=== PATIENT | male | born 1970 | race Caucasian/White ===

== ENCOUNTER 2021-06-07 02:54 | Day surgery (SDC) | payer BC, SELFPAY ==
[2021-05-22 14:12] VITALS: BMI 34.4
--- NOTE | 2021-06-06 14:08 | PM.HPGS ---
History of Present Illness History of Present Illness Consent: Risks, benefits, and alternatives have been discussed and questions answered. Patient agrees to proceed with procedure. Chief complaint: diarrhea, abnormal weightloss, abdominal pain Narrative: Angelo Abarca is a 51 year old male who for the past year he has had a significant change in his digestive tract. The symptoms of hers were subtle, and urgency to have a bowel movement and somewhat looser stools. By the summertime he was feeling a pressure in the lower abdomen a feeling as if he might be constipated and needed to have a bowel movement he however was not able to pass stool or if he did was loose. There was no blood in his stools. He will have several bowel movements per day. He also states somewhat tender in left lower quadrant for past 3 or 4 months. He was started on a fiber supplement and at 1st it seemed to help this consistency of his stool. The fiber product was a gummy but this also failed and now he is again back to the very loose stools. Sometimes he will lose his appetite and then when he tries to eat he gets nauseated. On a couple occasions she has vomited. blood work revealed increase in tissue transglutaminase antibody, suggestive of celiac disease. Also an anti Saccoramyces Ab was somewhat elevated suggestive of Crohn's disease Review of Systems Review of Systems: All systems reviewed & are unremarkable except as noted in HPI and below PMFSH Past Medical History Medical History Elevated BP without diagnosis of hypertension Hypertriglyceridemia Family History Family History Father Hypertension Family history of elevated blood lipids Mother Hypertension Social History Social History Smoking status: Never smoker Alcohol intake: current Drinks per week: 1 Substance use: never Substance use type: does not use Living arrangements: with family Spiritual care concerns: No Meds Home Medications and Allergies Home Medications Medication Instructions Recorded Confirmed Type omega-3 fatty acids-fish oil 360 1 cap PO DAILY 07/19/19 06/07/21 History mg-1,200 mg capsule amlodipine 10 mg tablet See Rx Instructions .ROUTE 07/17/20 06/07/21 Rx .COMPLEX #90 tablet metoprolol succinate 25 mg See Rx Instructions .ROUTE 02/05/21 06/07/21 Rx tablet,extended release 24 hr .COMPLEX #90 tablet cetirizine 10 mg capsule 10 mg PO DAILY PRN 02/15/21 06/07/21 History Allergies Allergy/AdvReac Type Severity Reaction Status Date / Time erythromycin base Allergy Unknown Unknown Verified 06/07/21 09:52 inositol Allergy Unknown Unknown Verified 06/07/21 09:52 niacin Allergy Unknown Unknown Verified 06/07/21 09:52 niacinamide Allergy Unknown Unknown Verified 06/07/21 09:52 MYCINS Allergy Intermediate RASH Uncoded 06/07/21 09:52 Exam Resp: Auscultation: clear to auscultation bilaterally Cardio: Rate: regular rate Rhythm: regular rhythm GI: GI Palp: Yes Soft to palpation and No Tenderness to palpation present (GI) Assessment and Plan Assessment and plan (1) Chronic diarrhea: Code(s): K52.9 - Noninfective gastroenteritis and colitis, unspecified Status: Acute Assessment and Plan: Colonoscopy with possible biopsy or polypectomy or cautery or injection of substances. (2) Weight loss: Code(s): R63.4 - Abnormal weight loss Status: Acute Assessment and Plan: EGD with possible biopsy or dilatation or cautery.
[2021-06-07 09:53] VITALS: BP 148/97; PULSE 113; RESP 20; TEMP 37.1; O2SAT 98; BMI 32.7
[2021-06-07] MEDS: LACTATED RINGERS 1,000 ML 150 ML IV CONT (09:56)
--- NOTE | 2021-06-07 09:57 | P.PNAN_ITS ---
Anes - Initial Pre Proc Eval Procedure: Operation Date: 06/07/21 10:30 Proposed Procedures p Esophagogastroduodenoscopy & Colonoscopy - Alfonso Cordoba MD Date/Time: 06/07/21 09:57 Surgeon: Alfonso Cordoba MD Pre Op Diagnosis: diarrhea, abnormal weightloss, abdominal pain Patient Data Age: 51 Gender: M Height: 1.78 m Weight: 103.4 kg Last Vital Signs Temp 37.1 C 06/07/21 09:53 Pulse 113 H 06/07/21 09:53 Resp 20 06/07/21 09:53 BP 148/97 H 06/07/21 09:53 Pulse Ox 98 06/07/21 09:53 Allergies Allergy/AdvReac Type Severity Reaction Status Date / Time erythromycin base Allergy Unknown Unknown Verified 06/07/21 09:52 inositol Allergy Unknown Unknown Verified 06/07/21 09:52 niacin Allergy Unknown Unknown Verified 06/07/21 09:52 niacinamide Allergy Unknown Unknown Verified 06/07/21 09:52 MYCINS Allergy Intermediate RASH Uncoded 06/07/21 09:52 Home Medications Medication Instructions Recorded Confirmed Type omega-3 fatty acids-fish oil 360 1 cap PO DAILY 07/19/19 06/07/21 History mg-1,200 mg capsule amlodipine 10 mg tablet See Rx Instructions .ROUTE 07/17/20 06/07/21 Rx .COMPLEX #90 tablet metoprolol succinate 25 mg See Rx Instructions .ROUTE 02/05/21 06/07/21 Rx tablet,extended release 24 hr .COMPLEX #90 tablet cetirizine 10 mg capsule 10 mg PO DAILY PRN 02/15/21 06/07/21 History Patient hx anesthesia problems: none Family hx anesthesia problems: none Results Review: All pre-operative results and documents have been reviewed as part of the pre-operative evaluation. [facility] Past Medical History Medical History Elevated BP without diagnosis of hypertension Hypertriglyceridemia Family History Family History Father Hypertension Family history of elevated blood lipids Mother Hypertension Social History Social History Smoking status: Never smoker Alcohol intake: current Drinks per week: 1 Substance use: never Substance use type: does not use Living arrangements: with family Spiritual care concerns: No Anes - Eval Final PreProcedure Day of Procedure 06/07/21 09:57 Patient weight: obese Heart: regular rate and rhythm Lungs: clear to auscultation Airway: Mallampati scale class III Neurological: alert and oriented Last oral intake: >/= 8 hours ASA classification: III Emergent: no Anesthetic plan: proceed Anesthesia type and monitoring: general GIVS and standard monitoring Results Review: All pre-operative results and documents have been reviewed as part of the pre-operative evaluation. Informed Consent: The patient's anesthetic plan and its attendant risks and benefits were discussed with the patient/family/POA. Questions were solicited and answers provided to the satisfaction of the patient/family/POA.
--- NOTE | 2021-06-07 10:53 | SUR.OPER ---
EGD end 1048 COLONOSCOPY START 105
[2021-06-07 11:20] VITALS: BP 95/62; PULSE 73; RESP 16; O2SAT 96
[2021-06-07 11:30] VITALS: BP 116/76; PULSE 87; RESP 18; O2SAT 96
[2021-06-07 11:40] VITALS: BP 139/93; PULSE 78; RESP 18; O2SAT 95
== END 2021-06-07 11:55 | disposition home or self-care (01) ==
PROVIDERS: PCP Internal Medicine; Visit Provider Internal Medicine Gastroenterology
PROC: 0DJ08ZZ Inspection of Upper Intestinal Tract, Via Natural or Artificial Opening Endoscopic (ICD-10-PCS; CPT 43235; principal; 2021-06-07 10:30)
DX: Z12.11 Encounter for screening for malignant neoplasm of colon (principal); K52.9 Noninfective gastroenteritis and colitis, unspecified; D37.4 Neoplasm of uncertain behavior of colon; R63.4 Abnormal weight loss; K63.5 Polyp of colon; K62.1 Rectal polyp; K63.3 Ulcer of intestine; R10.9 Unspecified abdominal pain; E78.1 Pure hyperglyceridemia; E66.9 Obesity, unspecified; Z68.32 Body mass index [BMI] 32.0-32.9, adult; R03.0 Elevated blood-pressure reading, without diagnosis of hypertension
CPT/HCPCS: 45380; 45381; 43239; 87081; 88304; 88305; 88342; J2704; J7120

== ENCOUNTER 2021-06-25 09:02 | Outpatient (CLI) | payer BC, SELFPAY ==
--- NOTE | ~2021-06-25 | CT_ITS ---
EXAMINATION: CT abdomen pelvis w con EXAM DATE: 06/25/2021 09:44 INDICATION: R10.9 - Unspecified abdominal pain . TECHNIQUE: Spiral CT of the abdomen and pelvis was performed following intravenous injection of 100 m L Omnipaque 350. Axial, coronal and sagittal images of the abdomen and pelvis were reviewed. The do se-length product (DLP) for this examination was 937.60 mGy-cm. The exposure was tailored according to patient size (auto mA exposure control), and iterative reconstruction (ASIR) was used as additiona l dose reduction technique. There is no prior study for comparison. FINDINGS: There is descending colonic intussusception, about 15 cm in length with fat density intralu ruthy region probably colonic lipoma serving as a lead point measuring up to 5 cm. The liver, spleen, adrenal glands and pancreas are unremarkable. Gallbladder is unremarkable. No biliary obstruction. Portal and splenic veins are patent. Kidneys enhance symmetrically. There is no hydronephrosis. Mild prostatomegaly. The bladder is unremarkable. There is no retroperitoneal or pelvic lymphadeno layton. Small bilateral inguinal fat-containing hernias. The appendix is normal. The stomach and small bowel are unremarkable. No free intraperitoneal ga s. The heart is normal in size. There are no pericardial or pleural effusions. The lung bases are unremarkable. There are no osteoblastic or osteolytic lesions identified. IMPRESSION: Descending colonic 15 cm intussusception, probable colonic lipoma lead point. Consider wa ter-soluble enema. I left a message for Dr. Alfonso Cordoba MD on 06/25/2021 11:07 WAREHOUSE FORKLIFT OPERATOR. I provided my direct number, r equested call back to discuss findings in this case. I then called the GI lab and spoke with nurse t o have Dr. Gaytan call me when finished with his procedure. Reviewed, dictated and finalized at location A. HOUSE FORKLIFT OPERATOR IMPRESSION: Descending colonic 15 cm intussusception, probable colonic lipoma l ead point. Consider water-soluble enema. I left a message for Dr. Alfonso Cordoba MD on 06/25/2021 11:07 WAREHOUSE FORKLIFT OPERATOR. I provid ed my direct number, requested call back to discuss findings in this case. I t hen called the GI lab and spoke with nurse to have Dr. Gaytan call me when jennifer shed with his procedure.
[2021-06-25 09:37] LABS: Estimated Glomerular Filt Rate > 60
== END 2021-06-25 09:03 | disposition home or self-care (01) ==
LOC: ANHIMG 09:05
PROVIDERS: PCP Internal Medicine; Visit Provider Internal Medicine Gastroenterology
DX: R10.9 Unspecified abdominal pain (principal); K56.1 Intussusception
CPT/HCPCS: 74177; Q9967

== ENCOUNTER 2021-06-27 09:46 | Outpatient (CLI) | payer BC, SELFPAY ==
--- NOTE | 2021-06-27 11:02 | ECG_ITS ---
Measurements Intervals Thayer Rate: 72 P: 50 MA: 159 QRS: 11 QRSD: 90 T: 37 QT: 397 QTc: 436 Interpretive Statements SINUS RHYTHM ST ELEVATION IN ANTEROLATERAL LEADS- PROBABLY EARLY REPOLARIZATION ABNORMALITY BASELINE ARTIFACT- I, II, III, AVR, AVL, AVF, V2-V3 BORDERLINE ECG Electronically Signed On 06-27-2021 12:35:47 WASHERETTE MACHINE OPERATOR by Jamil Barrow D.O.
[2021-06-27 11:26] LABS: Hematocrit 45.8 % (42.0-52.0); Hemoglobin 15.4 g/dL (14.0-18.0)
== END 2021-06-27 09:47 | disposition home or self-care (01) ==
LOC: ANHSURGERY 09:51
PROVIDERS: Anesthesiology; PCP Internal Medicine; Visit Provider Surgery
DX: Z01.818 Encounter for other preprocedural examination (principal); K63.89 Other specified diseases of intestine
CPT/HCPCS: 36415; 85014; 85018; 86850; 86900; 86901; 93005

== ENCOUNTER 2021-07-05 17:15 | Inpatient (IN) | payer BC, SELFPAY ==
[2021-06-27 09:51] VITALS: BP 128/84; PULSE 80; RESP 20; TEMP 36.4; O2SAT 97; BMI 32.5
--- NOTE | 2021-06-27 09:52 | PC.NURSE ---
Report to the Outpatient Waiting Room, entrance under the green pavilion located off [facility], at time _1100__ on date _07/05/21__. OR Time: ____1300____. - You and your visitor will be asked a series of questions to screen for COVID 19 for your protection. - A mask is required within the hospital. - NO visitors is allowed at this time. Patient visitors will be guided where to wait when not with patient. Preoperative COVID Testing Requirements: No COVID Test needed if: (proof is required; if not received patient will have Rapid Test prior to entry) - Patient has received COVID Vaccine at least 14 days prior to procedure date or - Patient has positive COVID test result within last 90 days of surgery date. COVID Test needed if above criteria is not met If not COVID vaccinated a COVID test must be conducted within 72 hours of surgery and patient is asked to isolate self from time of testing until procedure. You will go to the [email or web address] for your COVID testing. The [email or web address] site is located at the corner of [address] [facility]. You will only be called if COVID results are positive and your surgeon may reschedule your elective surgery date. Patients may have clear liquids (water, carbonated beverages, clear teas, apple juice) until 3 hours prior to surgery with a maximum of 20 ounces. (0900 AM) - No food from midnight until time of surgery - Infants may have breast milk until 4 hours before surgery, formula 6 hours prior to surgery. - Children will be allowed to drink immediately following surgery. If applicable, please bring a bottle or sippy cup to assist with drinking. Juice, water, soda, and popsicles are readily available. For infants on formula, please bring formula the day of surgery. Pacifiers are allowed. Take the following medications with a SIP of water the morning of surgery: _AMLODIPINE__ Medications to discontinue per ANESTHESIA - __FISH OIL, MULTIVITAMIN___ Date to take last dose____07/01/21 Please no make-up, nail bulgarian, hairspray, perfume, deodorant, or body powder the day of surgery. No jewelry (including any body piercings) or valuables the day of surgery, leave them at home. Please take a shower or bath the night before, or the morning of, surgery with an antibacterial soap. Wear comfortable, loose fitting clothing. Children are encouraged to wear pajamas. - Jewelry must be removed prior to entering the operating room. Rings and piercings that are not removed may be cut off. - The hospital will not accept responsibility for valuables. - Please leave all valuables, including medications, at home the day of surgery. If you are going home after surgery, a licensed telephone directory distributor driver must drive you home. - NO public transportation without another adult. - We recommend that an adult stay with you for 24 hours following discharge. - We also recommend that you do not drive, make important decision, drink alcoholic beverages, or take any drugs that were not prescribed by your health care provider for at least 24 hours after your discharge time. For Pediatric surgeries, we recommend two adults accompany the child home (only one inside the building at this time). Follow any additional instructions given to you from your surgeon. DIET, ENSURE BUNDLE, BOWEL PREP, PRE-OP ANTIBIOTICS, HIBICLENS SHOWER NIGHT BEFORE AND AM OF SURGERY Telephone instructions given to ____PT and asked if any additional questions and then verbalized understanding. Patient advised to call surgeon office or pre surgery nurse liaison [phone] if any additional questions.
[2021-07-05] VITALS (16 sets, daily range): BP systolic 123–160; BP diastolic 63–98; PULSE 88–117; RESP 14–18; TEMP 36.1–37.3; O2SAT 89–100
[2021-07-05] MEDS: LACTATED RINGERS 1,000 ML 30 ML IV CONT ×3 (11:36→16:03)
[2021-07-05] MEDS: ACETAMINOPHEN 500 MG TABLET 1000 MG PO ×2 (11:37→20:41)
[2021-07-05] MEDS: KETOROLAC 15 MG/ML VIAL (*BKC) IV PUSH (11:38)
--- NOTE | 2021-07-05 12:01 | WPDHPUPDATE1 ---
History and Physical Update Update Date/Time: 07/05/21 12:01 History and Physical has been reviewed, including an updated exam of the patient. There are NO changes in the patient's condition. Risks, benefits, and alternatives have been discussed and questions answered. Patient agrees to proceed with procedure.
--- NOTE | 2021-07-05 12:32 | WPDANESEPPF ---
Anes - Initial Pre Proc Eval Procedure: Operation Date: 07/05/21 13:00 Proposed Procedures p Hand Assisted Laparoscopic Sigmoid Colectomy, Possible Open - Cesar Starr DO Date/Time: 07/05/21 12:32 Surgeon: Cesar Starr DO Pre Op Diagnosis: Sigmoid Colon Mass Patient Data Age: 51 Gender: M Height: 1.78 m Weight: 97 kg Last Vital Signs Temp 36.4 C 07/05/21 11:48 Pulse 117 H 07/05/21 11:48 Resp 18 07/05/21 11:48 BP 123/88 07/05/21 11:48 Pulse Ox 99 07/05/21 11:48 Allergies Allergy/AdvReac Type Severity Reaction Status Date / Time erythromycin base Allergy Unknown Rash - Verified 07/05/21 11:15 A CHILD inositol Allergy Unknown Unknown- Verified 07/05/21 11:15 A CHILD niacin Allergy Unknown Unknown- Verified 07/05/21 11:15 A CHILD niacinamide Allergy Unknown Unknown- Verified 07/05/21 11:15 A CHILD MYCINS Allergy Intermediate RASH- A Uncoded 07/05/21 11:15 CHILD Home Medications Medication Instructions Recorded Confirmed Type omega-3 fatty acids-fish oil 360 1 cap PO QAM 07/19/19 07/05/21 History mg-1,200 mg capsule cetirizine 10 mg capsule 10 mg PO DAILY PRN 02/15/21 07/05/21 History amlodipine 10 mg QAM 06/27/21 07/05/21 History metoprolol succinate 25 mg HS 06/27/21 07/05/21 History multivitamin [Multi-Vitamin] 1 tablet PO DAILY 06/27/21 07/05/21 History Patient hx anesthesia problems: other (motion sickness) Family hx anesthesia problems: none Results Review: All pre-operative results and documents have been reviewed as part of the pre-operative evaluation. [facility] Past Medical History Medical History Essential hypertension Hypertriglyceridemia Mass of colon OSMIN on CPAP Surgical History Surgical History History of colonoscopy History of vasectomy Family History Family History Father Hypertension Family history of elevated blood lipids Mother Hypertension Diabetes mellitus Grandparent Diabetes mellitus Social History Social History Smoking status: Never smoker Second hand tobacco smoke exposure: No Alcohol intake: current Drinks per week: 1 Alcohol use details: STATES VERY SELDOM - MAYBE 1/WEEK IF THAT Substance use: never Substance use type: does not use Living arrangements: with family 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 Informed Consent: The patient's anesthetic plan and its attendant risks and benefits were discussed with the patient/family/POA. Questions were solicited and answers provided to the satisfaction of the patient/family/POA.
[2021-07-05] MEDS: SCOPOLAMINE 1.5 MG PATCH TRANSDERM (13:36)
[2021-07-05] MEDS: ceFAZolin 2 GM/D5W 50 ML 2 GM/50 ML BAG IVPB (14:24)
--- NOTE | 2021-07-05 15:52 | W.PM.PROC2 ---
Procedure Note - Detailed Date of Procedure 07/05/21 Pre-op Diagnosis Colon Mass, colon intussusception Post-op Diagnosis same Procedure Performed 1. Hand assisted laparoscopic left hemicolectomy with colo-colonic anastomosis 2. Laparoscopic mobilization of the splenic flexure Surgeon Cesar Starr, DO Anesthesia general and local (Exparel) Indications This is a 51-year-old man who has been complaining of intermittent abdominal pain for the past several months. He underwent colonoscopy by Dr. Cordoba on 06/07/2021 and was found to have a proximal sigmoid colon mass. This was biopsied but only showed evidence of ulcerated mucosa. He then underwent CT abdomen and pelvis on 06/25/2021 which showed evidence of a large submucosal lipoma in the descending colon causing intussusception. Discussions were made with the patient about treatment options and decision was made to proceed with hand assisted laparoscopic colectomy. Findings Upon inspecting the abdominal cavity laparoscopically, I was able to identify the mass up near the splenic flexure. The tattooed region was identified in this area. This appeared to be the cause of the intussusception. The distal transverse colon could be identified easily intussuscepting into this region, but it also reduced with gentle manual reduction pressure from distal. The surrounding bowel appeared healthy and viable. The splenic flexure was taken down to allow for adequate mobilization of the left colon and splenic flexure. The left colectomy was performed and a [id number] transverse colon to descending colon anastomosis was performed. Description of Procedure Procedure as well as risks, benefits, and alternatives were discussed with the patient. Written consent was obtained and placed in chart prior to procedure. Patient was brought back to surgical suite. He was placed supine on operating table. Time-out was done to confirm patient and procedure. He was then intubated by the anesthesia department. He was placed in modified lithotomy position and his perirectal region was prepped and draped in sterile fashion using Betadine prep. His abdomen was then prepped and draped in sterile fashion using chlorhexidine prep. A 7 cm vertical incision was made centered on the umbilicus using a 15 blade scalpel. Electrocautery was used for hemostasis and for dissection down through the subcutaneous tissue. The linea alba was then incised using electrocautery. The peritoneum was then lifted anteriorly and the peritoneum was entered using electrocautery. The fascial incision was extended throughout the length of the skin incision and then the Dean wound protector was placed at the incision. The abdominal cavity was carefully inspected and then the GelPort was applied over the wound protector with a 5 mm trocar passing through it. Carbon dioxide insufflation was used to create a pneumoperitoneum. The care was inserted in the abdominal cavity was inspected. The patient was then placed in Trendelenburg position rotated slightly to the right. A 12 mm incision was made in the right lower quadrant and a 12 mm trocar was inserted under direct visualization. Another 5 mm incision was made in the suprapubic region and a 5 mm trocar was inserted under direct visualization. I carefully inspected the entire abdominal cavity and identified the colonic mass at the splenic flexure. This area was also visualized where the tattoo ink was. No other intra-abdominal abnormalities were noted. The descending colon lateral peritoneal attachments were carefully taken down her right at the distal descending colon near the sigmoid colon. These were carefully taken down using hook electrocautery and LigaSure bipolar cautery. The lateral attachments were then taken down proximally along the descending colon. I then continued along the descending colon up to the splenic flexure and carefully took down the splenic flexure attachments with LigaSure bi
[2021-07-05] MEDS: ONDANSETRON INJ 4 MG/2 ML VIAL IV PUSH (16:32)
[2021-07-05] MEDS: fentaNYL CITRATE INJ (*CRX) 100 MCG/2 ML VIAL 25 MCG IV PUSH (16:36)
--- NOTE | 2021-07-05 16:58 | SUR.PHASEI ---
this nurse faxed the sbar
--- NOTE | 2021-07-05 17:20 | SUR.PHASEII ---
25 mcg of fentanyl given at 1650 and 25 mcg of fentanyl given at 1700
[2021-07-05] MEDS: LACTATED RINGERS 1,000 ML 125 ML IV CONT (17:35)
[2021-07-05] MEDS: METOPROLOL SUCCINATE EXT REL 25 MG TABCR PO (20:41)
[2021-07-06] MEDS: ACETAMINOPHEN 500 MG TABLET 1000 MG PO ×5 (02:32→23:29)
[2021-07-06 03:00] VITALS: BP 121/74; PULSE 82; RESP 18; TEMP 36.4; O2SAT 98
[2021-07-06 06:13] LABS: Basophils Percent Auto 0.1 % (0.2-1.2); Hematocrit 42.3 % (42.0-52.0); Immature Granulocyte Absolute 0.06 K/mm3 (0.00-0.031); Immature Granulocyte Percent A 0.4 % (0-0.5); Lymphocytes Absolute Auto 1.52 K/mm3 (0.9-3.2); Lymphocytes Percent Auto 10.8 % (18.3-44.2); Mean Corpuscular HGB Conc 33.1 g/dl (32-36); Mean Corpuscular Hemoglobin 27.7 pg (26-34); Mean Corpuscular Volume 83.8 fl (80-100); Mean Platelet Volume 11.1 fl (7.4-10.4); Monocytes Absolute Auto 1.3 K/mm3 (0.1-0.6); Monocytes Percent Auto 8.9 % (2.6-8.5); Neutrophils Absolute Auto 11.2 K/mm3 (1.3-6.7); Neutrophils Percent Auto 79.8 % (45.5-73.1); Platelet Count Result 231 k/mm3 (150-375); Red Blood Count 5.05 M/mm3 (4.6-6.20); Red Cell Distribution Width 12.8 % (11.5-14.5)
[2021-07-06 06:32] LABS: Anion Gap 8 mmol/L (8-16); Blood Urea Nitrogen 11 mg/dL (9-20); Calcium 8.6 mg/dL (8.4-10.2); Carbon Dioxide 27 mmol/L (22-30); Chloride 100 mmol/L (98-107); Estimated CRCL calculation 91 ml/min; Estimated Glomerular Filt Rate > 60; Glucose 121 mg/dL (65-110); Potassium 3.9 mmol/L (3.4-5.0); Sodium 135 mmol/L (137-145)
[2021-07-06] MEDS: LACTATED RINGERS 1,000 ML 125 ML IV CONT (06:56)
[2021-07-06] MEDS: ENOXAPARIN 40 MG/0.4 ML SYRINGE SUB-Q (09:21)
--- NOTE | 2021-07-06 09:35 | PM.PNGS ---
Progress Note: A&P Assessment and Plan (1) Mass of colon: Code(s): K63.89 - Other specified diseases of intestine Status: Acute Assessment and Plan: doing well, cont clears, await ROBF, encourage OOB/IS, await path Subjective Subjective Date/Time Seen: 07/06/21 09:35 feels good, minimal incisional soreness Review of Systems Review of Systems: All systems reviewed & are unremarkable except as noted in HPI and below Exam Const: General: cooperative, comfortable and no acute distress Orientation/consciousness: patient oriented x3 Resp: Auscultation: clear to auscultation bilaterally Cardio: Rate: regular rate Rhythm: regular rhythm GI: Inspection: normal to inspection, distended and incision GI Palp: Yes Soft to palpation and Yes Tenderness to palpation present (GI) Objective Data Vital Signs Vital Signs: Vital Signs - 24 hr 07/05/21 11:48 07/05/21 16:02 07/05/21 16:15 Temperature 36.4 C 37.3 C Pulse Rate 117 H 105 H 102 H Respiratory Rate 18 16 16 Blood Pressure 123/88 153/96 H 154/95 H Pulse Oximetry 99 100 98 07/05/21 16:30 07/05/21 16:43 07/05/21 16:45 Temperature Pulse Rate 95 107 H Respiratory Rate 15 15 Blood Pressure 160/63 H 155/96 H Pulse Oximetry 98 89 L 93 07/05/21 17:00 07/05/21 17:12 07/05/21 17:15 Temperature 36.1 C L Pulse Rate 109 H 110 H 101 H Respiratory Rate 14 18 14 Blood Pressure 155/96 H 155/88 H 151/90 H Pulse Oximetry 96 95 97 07/05/21 17:30 07/05/21 18:00 07/05/21 18:17 Temperature 36.6 C 36.8 C Pulse Rate 110 H 98 Respiratory Rate 14 18 Blood Pressure 148/98 H 141/86 H Pulse Oximetry 98 98 98 07/05/21 19:00 07/05/21 20:00 07/05/21 20:41 Temperature 36.8 C Pulse Rate 110 H 88 88 Respiratory Rate 16 16 Blood Pressure 140/86 Pulse Oximetry 96 96 07/05/21 23:00 07/06/21 03:00 Temperature 36.3 C L 36.4 C Pulse Rate 115 H 82 Respiratory Rate 18 18 Blood Pressure 151/94 H 121/74 Pulse Oximetry 99 98 Intake/Output Intake/Output: Intake & Output 07/03/21 07/04/21 07/05/21 07/06/21 23:59 23:59 23:59 23:59 Intake Total 1400 1240 Output Total 200 950 Balance 1200 290 Meds/Results Medications: Active Medications Generic Name Dose Route Start Last Admin Trade Name Freq PRN Reason Stop Dose Admin Acetaminophen 1,000 mg 07/05/21 18:00 07/06/21 05:33 Acetaminophen 500 Mg Tablet PO 1,000 mg Q6H JUAN Administration Enoxaparin Sodium 40 mg 07/06/21 09:00 07/06/21 09:21 Enoxaparin 40 Mg/0.4 Ml Syringe SUB-Q 40 mg DAILY JUAN Administration Metoprolol Succinate 25 mg 07/05/21 21:00 07/05/21 20:41 Metoprolol Succinate Ext Rel 25 Mg Tabcr PO 25 mg HS JUAN Administration Morphine Sulfate 2 mg 07/05/21 17:15 Morphine Sulfate (*Crx) 2 Mg/Ml Inj IV PUSH Q2H PRN Pain Rated 4-6 Morphine Sulfate 4 mg 07/05/21 17:15 Morphine Sulfate (*Crx) 4 Mg/Ml Inj IV PUSH Q2H PRN Pain Rated 7-10 Ondansetron HCl 4 mg 07/05/21 17:15 Ondansetron Inj 4 Mg/2 Ml Vial IV PUSH Q4H PRN Nausea And Vomiting Oxycodone HCl 2.5 mg 07/05/21 17:15 Oxycodone Hcl (*Crx) 2.5 Mg Tab Ir PO Q4H PRN Pain Rated 4-6 Oxycodone HCl 5 mg 07/05/21 17:15 Oxycodone Hcl (*Crx) 5 Mg Tab Ir PO Q4H PRN Pain Rated 7-10 Labs Labs: Laboratory Results - last 24 hr 07/06/21 07/06/21 05:56 05:56 WBC 14.0 H RBC 5.05 Hgb 14.0 Hct 42.3 MCV 83.8 MCH 27.7 MCHC 33.1 RDW 12.8 Plt Count 231 MPV 11.1 H Immature Gran % (Auto) 0.4 Neut % (Auto) 79.8 H Lymph % (Auto) 10.8 L Stafford % (Auto) 8.9 H Eos % (Auto) 0.0 Baso % (Auto) 0.1 L Lymph # (Auto) 1.52 Stafford # (Auto) 1.3 H Eos # (Auto) 0.0 Baso # (Auto) 0.0 Abs Immat Gran (auto) 0.06 H Absolute Neuts (auto) 11.2 H Absolute Nucleated RBC 0.0 Nucleated RBC % 0.0 Sodium 135 L Potassium 3.9 Chloride 100 Carbon Dioxide 27 Anion Gap
[2021-07-06 14:06] VITALS: BP 125/72; PULSE 64; RESP 14; TEMP 36.2; O2SAT 94
[2021-07-06 20:54] VITALS: BP 138/74; PULSE 70; RESP 18; TEMP 36.2; O2SAT 97
[2021-07-06 20:57] VITALS: PULSE 70
[2021-07-06] MEDS: METOPROLOL SUCCINATE EXT REL 25 MG TABCR PO (20:57)
[2021-07-07 04:30] VITALS: BP 154/91; PULSE 72; RESP 16; TEMP 36.2; O2SAT 95
[2021-07-07] MEDS: ACETAMINOPHEN 500 MG TABLET 1000 MG PO ×2 (05:01→12:12)
[2021-07-07] MEDS: ENOXAPARIN 40 MG/0.4 ML SYRINGE SUB-Q (09:51)
--- NOTE | 2021-07-07 12:00 | PM.PNGS ---
Progress Note: A&P Assessment and Plan (1) Mass of colon: Code(s): K63.89 - Other specified diseases of intestine Status: Acute Assessment and Plan: doing well, ADAT, await ROBF (small amount of flatus this am), encourage OOB/IS, home soon if able to sarah diet and have some more bowel fxn Subjective Subjective Date/Time Seen: 07/07/21 12:00 feels good, pain well controlled, sarah clears, +flatus Review of Systems Review of Systems: All systems reviewed & are unremarkable except as noted in HPI and below Exam Const: General: cooperative, comfortable and no acute distress Orientation/consciousness: patient oriented x3 Resp: Auscultation: clear to auscultation bilaterally Cardio: Rate: regular rate Rhythm: regular rhythm GI: Inspection: normal to inspection, distended and incision GI Palp: Yes Soft to palpation, Yes Tenderness to palpation present (GI), No Guarding due to palpation present (GI) and No Rigid due to palpation Objective Data Vital Signs Vital Signs: Vital Signs - 24 hr 07/06/21 14:06 07/06/21 20:54 07/06/21 20:57 Temperature 36.2 C L 36.2 C L Pulse Rate 64 70 70 Respiratory Rate 14 18 Blood Pressure 125/72 138/74 Pulse Oximetry 94 97 07/07/21 04:30 Temperature 36.2 C L Pulse Rate 72 Respiratory Rate 16 Blood Pressure 154/91 H Pulse Oximetry 95 Intake/Output Intake/Output: Intake & Output 07/04/21 07/05/21 07/06/21 07/07/21 23:59 23:59 23:59 23:59 Intake Total 1400 1240 Output Total 200 950 Balance 1200 290 Meds/Results Medications: Active Medications Generic Name Dose Route Start Last Admin Trade Name Freq PRN Reason Stop Dose Admin Acetaminophen 1,000 mg 07/05/21 18:00 07/07/21 05:01 Acetaminophen 500 Mg Tablet PO 1,000 mg Q6H JUAN Administration Amlodipine Besylate 10 mg 07/07/21 11:04 Amlodipine Besylate 5 Mg Tablet PO QAM JUAN Enoxaparin Sodium 40 mg 07/06/21 09:00 07/07/21 09:51 Enoxaparin 40 Mg/0.4 Ml Syringe SUB-Q 40 mg DAILY JUAN Administration Metoprolol Succinate 25 mg 07/05/21 21:00 07/06/21 20:57 Metoprolol Succinate Ext Rel 25 Mg Tabcr PO 25 mg HS JUAN Administration Morphine Sulfate 2 mg 07/05/21 17:15 Morphine Sulfate (*Crx) 2 Mg/Ml Inj IV PUSH Q2H PRN Pain Rated 4-6 Morphine Sulfate 4 mg 07/05/21 17:15 Morphine Sulfate (*Crx) 4 Mg/Ml Inj IV PUSH Q2H PRN Pain Rated 7-10 Ondansetron HCl 4 mg 07/05/21 17:15 Ondansetron Inj 4 Mg/2 Ml Vial IV PUSH Q4H PRN Nausea And Vomiting Oxycodone HCl 2.5 mg 07/05/21 17:15 Oxycodone Hcl (*Crx) 2.5 Mg Tab Ir PO Q4H PRN Pain Rated 4-6 Oxycodone HCl 5 mg 07/05/21 17:15 Oxycodone Hcl (*Crx) 5 Mg Tab Ir PO Q4H PRN Pain Rated 7-10
[2021-07-07] MEDS: amLODIPine BESYLATE 5 MG TABLET 10 MG PO (12:12)
--- NOTE | 2021-07-07 18:00 | PM.DS ---
DS: Admitting Diagnosis Discharge Date 07/07/21 Admitting Diagnosis Colon mass, colon intussusception DS: Discharge Diagnosis Discharge Diagnosis (1) Mass of colon: Code(s): K63.89 - Other specified diseases of intestine Status: Acute (2) Colonic intussusception: Code(s): K56.1 - Intussusception Status: Acute DS: Summary Hospital Course Reason for hospitalization: Colon mass Hospital Course: This is a 51 yo man who presented for colon resection on 07/05/21. He underwent hand assisted laparoscopic left hemicolectomy with anastomosis and was admitted for postoperative care. He was started on clear liquids initially. Diet was slowly advanced over the next 2 days. Activity was also advanced slowly. His pain was controlled with oral and IV pain meds. On POD#2 he was tolerating a solid diet and passing flatus. He was discharged on POD#2. Status at Discharge Functional status at discharge: independent ambulation Overall status at discharge: patient is progressing back to baseline Time Spent with Patient Time attestation: Total time spent providing and/or coordinating discharge services: Time spent: Less than 30 minutes DS: Data Data Completed and Pending Completed studies during hospitalization: Pending at discharge 07/05/21 14:53 Surgical [PTH] Routine Discharge Plan Discharge Attending physician on discharge: Cesar Starr Discharging Clinician: Josefina Luong Patient Disposition: Home, Self-Care Activity: as tolerated Diet: low fat Discharge Instructions: Remove the Scopolamine patch that was placed behind your ear in 72 hours or less. Wash your hands after touching. Skin Adhesive Care Skin adhesive is medical glue used to close wounds. It is a substitute for sarita and stitches. Skin adhesive wound closures take less time and do not require anesthesia. You have less pain and a lower risk of infection than with sarita or stitches. Skin adhesive will fall off after the wound is healed. Discharge instructions: Keep wound clean and dry. You can shower 24 hours after adhesive is applied but do not soak in bath or hot tub until wound is healed or provider approves. Do not pick or scrub your wound or the adhesive. This can make your wound reopen. ?Do not apply ointments to your wound. These include antibiotic or other ointments that would contain petroleum jelly. These products will remove skin adhesive and reopen the wound. Contact your provider if you have a fever, your wound is red and warm to touch or have questions about your condition or care. Seek care immediately if your wound is draining fluid or open. Follow up with Dr. Starr in 2 weeks. Stand Alone Forms: General Discharge Instructions Follow-up/Referrals: Cesar Starr, DO [Physician] - Discharge Medications: New hydrocodone-acetaminophen 5-325 mg tablet 1 tablet PO Q6H PRN (Reason: pain) Qty: 30 RF: 0 docusate sodium [Colace] 100 mg capsule 100 mg PO BID Qty: 30 RF: 0 Continued Zyrtec 10 mg capsule 10 mg PO DAILY PRN (Reason: Allergic Reaction) RF: 0 metoprolol succinate 25 mg tablet extended release 24 hr 25 mg HS RF: 0 multivitamin Tablet 1 tablet PO DAILY RF: 0 omega-3 fatty acids-fish oil [Fish Oil] 360-1,200 mg capsule 1 cap PO QAM RF: 0 No Action amlodipine 10 mg tablet 10 mg PO QAM Qty: 90 RF: 1 Date of admission: 07/05/21 17:15 Primary Care Provider: Luisito Solano Admitting Provider: Cesar Starr Attending physician on admission: Josefina Luong Condition: Improved
== END 2021-07-07 18:31 | disposition home or self-care (01) | DRG 331 ==
LOC: ANH3MED 07-07 17:47
PROVIDERS: Admitting Provider Surgery; PCP Internal Medicine; Visit Provider Surgery
PROC: 0D1E4Z4 Bypass Large Intestine to Cutaneous, Percutaneous Endoscopic Approach (ICD-10-PCS; principal; 2021-07-05 13:00)
DX: K63.89 Other specified diseases of intestine (principal); K56.1 Intussusception; I10 Essential (primary) hypertension; G47.33 Obstructive sleep apnea (adult) (pediatric); E78.1 Pure hyperglyceridemia
CPT/HCPCS: 36415; 80048; 85025; 88307; A9270; C1729; C9290; J0330; J0690; J1100; J1650; J1885; J2250; J2405; J2704; J2710; J3010; J7120